=== PATIENT | male | born 1965 | race African-American/Black ===

== ENCOUNTER 2017-06-11 08:52 | Emergency (ER) | payer OTHER ==
[~2017-06-11] VITALS: Ht 177.8 cm; Wt 104.3 kg
[~2017-06-11 08:52] MED LIST: ALLERGY SHOT; AMOXICILLIN500 MG PO; BIAXIN500 MG PO; CLARITIN10 MG PO; DARVOCET N 1001 TAB PO; MOTRIN800 MG PO; NKHM; NORCO 5-325 TA1 EACH PO; SINGULAIR10 MG PO; ZANTAC150 MG PO; ZITHROMAX Z PA250 MG PO; ZOFRAN4 MG PO; ZYRTEC10 MG PO
[2017-06-11] MEDS ORDERED: CYCLOBENZAPRINE10 MG PO (10:41)
[2017-06-11] MEDS ORDERED: NAPROSYN500 MG PO (10:41)
== END 2017-06-11 11:00 | disposition home or self-care (01) ==
LOC: ED 08:52
DX: S16.1XXA Strain of muscle, fascia and tendon at neck level, initial encounter (principal); Z88.0 Allergy status to penicillin; V89.2XXA Person injured in unspecified motor-vehicle accident, traffic, initial encounter; Y93.89 Activity, other specified; Y92.89 Other specified places as the place of occurrence of the external cause; Y99.8 Other external cause status

== ENCOUNTER → 2017-07-06 | Outpatient (CLI) | payer OTHER ==
[~2017-07-06] MED LIST changes: +CYCLOBENZAPRINE10 MG PO; +NAPROSYN500 MG PO
== END ==
LOC: CT 10:53
DX: R51 Headache (principal); V89.2XXA Person injured in unspecified motor-vehicle accident, traffic, initial encounter; Y93.89 Activity, other specified; Y92.89 Other specified places as the place of occurrence of the external cause; Y99.8 Other external cause status

== ENCOUNTER 2017-08-27 08:16 | Emergency (ER) | payer OTHER ==
[~2017-08-27] VITALS: Ht 177.8 cm; Wt 101.6 kg
[2017-08-27] MEDS ORDERED: TYLENOL325 M2 PO (08:51)
[2017-08-27] MEDS ORDERED: VALTREX1000 MG PO (08:51)
[2017-08-27] MEDS ORDERED: NAPROSYN500 MG PO (08:51)
== END 2017-08-27 08:50 | disposition home or self-care (01) ==
LOC: ED 08:16
DX: B02.9 Zoster without complications (principal); Z88.0 Allergy status to penicillin

== ENCOUNTER → 2018-05-17 | Outpatient (CLI) | payer OTHER ==
[~2018-05-17] MED LIST changes: +TYLENOL325 M2 PO; +VALTREX1000 MG PO
[2018-05-17 12:00] LABS: VITAMIN D, 25-HYDROXY 14.7 ng/mL (30-100)
[2018-05-17 12:01] LABS: BUN 14 mg/dl (7-24); CHLORIDE 105 mmol/L (98-107); CREATININE 1.15 mg/dL (0.70-1.30); POTASSIUM 4.3 mmol/L (3.5-5.1); SODIUM 138 mmol/L (136-145); URIC ACID 4.7 mg/dL (3.5-7.2)
[2018-05-17 12:10] LABS: FREE T4 0.79 ng/dl (0.76-1.46)
[2018-05-18 15:08] LABS: THYROGLOBULIN ANTIBODY 1.3 IU/mL (0.0-0.9)
== END | disposition home or self-care (01) ==
LOC: LAB 11:02
PROVIDERS: Internal Medicine
DX: I10 Essential (primary) hypertension (principal); E55.9 Vitamin D deficiency, unspecified; E03.9 Hypothyroidism, unspecified; E29.1 Testicular hypofunction; N40.0 Benign prostatic hyperplasia without lower urinary tract symptoms; M10.9 Gout, unspecified

== ENCOUNTER 2018-08-30 13:06 | Emergency (ER) | payer SELFPAY ==
[~2018-08-30] VITALS: Ht 177.8 cm; Wt 102.1 kg
--- NOTE | ~2018-08-30 | EKG ---
[place], [place] ELECTROCARDIOGRAM REPORT NAME: MEHRAN MCKEON UNIT #: [id number] ROOM: DOCTOR: MARIANNA DRAFT REPORT BIRTHDATE: [birth year] [facility] Test Date: 2018-08-30 Test Time: 13:37:20 Pat Name: MEHRAN MCKEON Department: Room: Gender: Financial Systems Manager: Nikole Gambino : 1965 Requested By: DRISS LA Order Number: [id number] Reading MD: Arjun Bergeron MD Measurements Intervals [place] Rate: 84 P: 53 MN: 166 QRS: -18 QRSD: 94 T: 28 QT: 342 QTc: 405 Interpretive Statements Sinus rhythm Borderline left axis deviation Abnormal R-wave progression, early transition Electronically Signed On 09-01-2018 13:53:35 PDT by Arjun Bergeron MD CM:EKGRPT:ELECTROCARDIOGRAM REPORT [id number] DRISS PEREZ DRAFT REPORT DRISS LA DO
[2018-08-30 14:07] LABS: BASO % 0.3 % (0.0-1.0); EOS # 0.1 10*3/uL (0.0-0.4); EOS % 1.2 % (1.0-4.0); HEMATOCRIT 40.2 % (42.0-52.0); LYMPH # 1.3 10*3/uL (1.3-4.4); LYMPH % 12.3 % (27.0-41.0); MEAN CELL VOLUME 83.8 fl (80.0-94.0); MEAN CORPUSCULAR HGB 27.1 pg (27.0-31.0); MEAN CORPUSCULAR HGB CONC 32.3 g/dl (33.0-37.0); MEAN PLATELET VOLUME 8.8 fl (9.6-12.3); MONO # 0.9 10*3/uL (0.1-1.0); MONO % 8.5 % (3.0-9.0); NEUT # 8.3 10*3/uL (2.3-7.9); NEUT % 76.7 % (47.0-73.0); PLATELET COUNT AUTOMATED 218 10*3/uL (130-400); RED CELL DISTRI WIDTH 13.8 % (0-14.5); WHITE BLOOD COUNT 10.8 10*3/uL (4.8-10.8)
[2018-08-30 14:24] LABS: ACT PARTIAL THROMBO TIME 33.2 SECONDS (20.8-31.5); ALBUMIN 3.1 gm/dl (3.1-4.5); ALKALINE PHOSPHATASE 65 U/L (45-117); BUN 14 mg/dl (7-24); CHLORIDE 103 mmol/L (98-107); CREATININE 1.27 mg/dL (0.70-1.30); LIPASE 105 U/L (73-393); POTASSIUM 3.2 mmol/L (3.5-5.1); SGOT/AST 14 IU/L (3-35); SGPT/ALT 19 U/L (12-78); SODIUM 138 mmol/L (136-145); TOTAL PROTEIN 7.6 gm/dL (6.4-8.2)
[2018-08-30 14:25] LABS: BILIRUBIN 1+ (NEGATIVE); BLOOD TRACE-LYSED (NEGATIVE); CLARITY CLEAR (CLEAR); COLOR YELLOW (YELLOW); GLUCOSE NEGATIVE (NEGATIVE); KETONE 2+ (NEGATIVE); LEUKO ESTERASE NEGATIVE (NEGATIVE); NITRITE NEGATIVE (NEGATIVE); SPECIFIC GRAVITY 1.025 (1.005-1.030)
[2018-08-30 14:27] LABS: TROPONIN I < 0.015 ng/ml (<0.045)
[2018-08-30 14:39] LABS: BACTERIA 1+; MUCOUS 1+; RBC 0-2 rbc/hpf (0-2)
[2018-08-30] MEDS ORDERED: LEVAQUIN750 M1 PO (16:55)
== END 2018-08-30 16:59 | disposition left against medical advice (07) ==
LOC: ED 13:06
PROVIDERS: Emergency Medicine
DX: J18.1 Lobar pneumonia, unspecified organism (principal); Z88.0 Allergy status to penicillin

== ENCOUNTER → 2018-10-26 | Outpatient (CLI) | payer SELFPAY ==
[~2018-10-26] MED LIST changes: +LEVAQUIN750 M1 PO
== END | disposition home or self-care (01) ==
LOC: LAB 09:36
DX: N52.9 Male erectile dysfunction, unspecified (principal); E29.1 Testicular hypofunction

== ENCOUNTER → 2024-08-08 | Outpatient (CLI) | payer OTHER ==
[~2024-08-08] MED LIST changes: +HYDROCODONE-AC1 EAC1 PO
== END | disposition home or self-care (01) ==
LOC: ORTHO 01:42
PROVIDERS: ATTEND Orthopaedic Surgery
DX: S62.610A Displaced fracture of proximal phalanx of right index finger, initial encounter for closed fracture (principal); M79.641 Pain in right hand; X58.XXXA Exposure to other specified factors, initial encounter; Y93.89 Activity, other specified; Y92.89 Other specified places as the place of occurrence of the external cause

== ENCOUNTER → 2024-08-09 | Day surgery (SDC) | payer OTHER ==
[~2024-08-09] VITALS: Ht 177.8 cm; Wt 95.3 kg
[~2024-08-09] MED LIST changes: +BUPivacaine 0.5% 10 ML VIAL ONE; +Clindamycin Phosphate 50 ML IV ONE; +Lactated Ringer's Solution 1,000 ML IV ONE; +Lidocaine Hydrochloride 5 ML AMP ONE; +Lidocaine Hydrochloride 5 ML VIAL IV ONE; +Midazolam Hydrochloride 2 MG/2 ML VIAL IV ONE; +Ondansetron Hydrochloride 4 MG/2 ML VIAL IV ONE; +PROPOFOL 200 MG/20 ML VIAL IV ONE; +Phenylephrine Hydrochloride 1 MG/10 ML SYRINGE IV ONE; +SEVOFLURANE 250 ML BOT INH ONE; +ePHEDrine Sulfate 25 MG/5 ML SYRINGE IV ONE; +fentaNYL CITRATE 100 MCG/2 ML VIAL IV ONE
[2024-08-09 10:25] LABS: BUN 15 mg/dl (9-23); CHLORIDE 108 mmol/L (98-107); POTASSIUM 3.8 mmol/L (3.4-5.1)
[2024-08-09 10:30] VITALS: BP 125/81
[2024-08-09 12:15] VITALS: BP 120/72
[2024-08-09 12:30] VITALS: BP 108/73
[2024-08-09 12:45] VITALS: BP 124/80
[2024-08-09 13:00] VITALS: BP 114/45
[2024-08-09 13:15] VITALS: BP 131/87
== END | disposition home or self-care (01) ==
LOC: SDC 08-08 14:00
PROVIDERS: ATTEND Orthopaedic Surgery
DX: S62.610A Displaced fracture of proximal phalanx of right index finger, initial encounter for closed fracture (principal); M19.041 Primary osteoarthritis, right hand; I10 Essential (primary) hypertension; M10.9 Gout, unspecified; Z88.0 Allergy status to penicillin; Z79.899 Other long term (current) drug therapy; Z98.890 Other specified postprocedural states; Z82.3 Family history of stroke; W01.0XXA Fall on same level from slipping, tripping and stumbling without subsequent striking against object, initial encounter; Y93.89 Activity, other specified; Y92.89 Other specified places as the place of occurrence of the external cause; Y99.8 Other external cause status

== ENCOUNTER → 2024-08-15 | Outpatient (CLI) | payer OTHER ==
[~2024-08-15] MED LIST changes: -BUPivacaine 0.5% 10 ML VIAL ONE; -Clindamycin Phosphate 50 ML IV ONE; -Lactated Ringer's Solution 1,000 ML IV ONE; -Lidocaine Hydrochloride 5 ML AMP ONE; -Lidocaine Hydrochloride 5 ML VIAL IV ONE; -Midazolam Hydrochloride 2 MG/2 ML VIAL IV ONE; -Ondansetron Hydrochloride 4 MG/2 ML VIAL IV ONE; -PROPOFOL 200 MG/20 ML VIAL IV ONE; -Phenylephrine Hydrochloride 1 MG/10 ML SYRINGE IV ONE; -SEVOFLURANE 250 ML BOT INH ONE; -ePHEDrine Sulfate 25 MG/5 ML SYRINGE IV ONE; -fentaNYL CITRATE 100 MCG/2 ML VIAL IV ONE
== END | disposition home or self-care (01) ==
LOC: ORTHO 02:15
PROVIDERS: ATTEND Orthopaedic Surgery
DX: M25.512 Pain in left shoulder (principal)

== ENCOUNTER → 2024-08-24 | Outpatient (CLI) | payer OTHER | END | disposition home or self-care (01) | LOC: US 08:00 | PROVIDERS: ATTEND Urology | DX: N50.3 Cyst of epididymis (principal); N28.89 Other specified disorders of kidney and ureter; E29.1 Testicular hypofunction; N43.3 Hydrocele, unspecified; N40.0 Benign prostatic hyperplasia without lower urinary tract symptoms; N28.1 Cyst of kidney, acquired ==